=== PATIENT | male | born 1965 | race American Indian/Alaskan Native ===

== ENCOUNTER 2019-11-05 08:00 | Outpatient (CLI) | payer BC | END 2019-11-05 23:00 | disposition home or self-care (01) | LOC: SLR 08:00 | PROVIDERS: ATTEND Otolaryngology | DX: G47.33 Obstructive sleep apnea (adult) (pediatric) (principal); R40.0 Somnolence; I10 Essential (primary) hypertension | CPT/HCPCS: G0399 ==